=== PATIENT | male | born 1990 | race Two or more races ===

== ENCOUNTER 2020-10-18 22:24 | Emergency (ER) | payer BC, MEDICAID, OTHER ==
[~2020-10-18] VITALS: Ht 182.9 cm; Wt 91.0 kg
[2020-10-19] MEDS ORDERED: CLOT15CR5 TP (01:16)
[2020-10-19 01:28] VITALS: BP 129/91
== END 2020-10-19 01:29 | disposition home or self-care (01) ==
LOC: ER 22:24
DX: R21 Rash and other nonspecific skin eruption (principal); R61 Generalized hyperhidrosis; R03.0 Elevated blood-pressure reading, without diagnosis of hypertension; Z90.89 Acquired absence of other organs
CPT/HCPCS: 99283